=== PATIENT | female | born 1980 | race African-American/Black ===

== ENCOUNTER 2017-07-25 10:48 | Emergency (ER) | payer MEDICAID ==
[~2017-07-25 10:48] MED LIST: ALBU8.5H IH; AMLO-96 PO; AMLO-99 PO; AMOX-559 PO; AZIT-1 PO; BENZ100C4 PO; BUPR-136 PO; CLON-298 PO; DOXY-179 PO; DOXY-181 PO; HYDR-2966 PO; MULT1TAB64 PO; PHEN-460 PO; SERT-181 PO; VENL75CA58 PO
--- NOTE | 2017-07-25 10:56 | ER Report ---
History and Physical Time Seen By MD: 10:55 HPI/ROS CHIEF COMPLAINT: Foot injury HISTORY OF PRESENT ILLNESS: This is a 37-year-old female who presents to the emergency department for left foot and ankle pain. Patient states that July 23 she was getting out of the shower and rolled her foot and ankle medially. Patient states that she has been trying to manage this at home with Tylenol and rest with little success at this point. The patient did decide to come in for further evaluation. Patient states she is walking with a limp, there is swelling to the left ankle and left small toe. Patient has no other complaints no nausea, vomiting, aches, chills. REVIEW OF SYSTEMS: Respiratory: No cough, no dyspnea. Cardiovascular: No chest pain, no palpitations. Gastrointestinal: No vomiting, no abdominal pain. Musculoskeletal: As above. Allergies: Coded Allergies: Penicillins (Verified Allergy, Unknown, 05/02/16) meloxicam (Verified Allergy, Unknown, 07/25/17) Uncoded Allergies: seasonal allergies (Allergy, Unknown, 05/02/16) Home Meds Active Scripts Ibuprofen (IBUPROFEN) 800 Mg Tablet, 1 TAB PO Q8H, #30 TAB Prov:MARITA LIZARRAGA EBD SPECIAL EDUCATION TEACHER-BC 07/25/17 Hydrochlorothiazide (HYDROCHLOROTHIAZIDE) 25 Mg Tablet, 1 TAB PO QDAY, #90 TAB 1 Refill Prov:ALONDRA DOSHI MD 05/27/17 Clonazepam (CLONAZEPAM) 0.5 Mg Tablet, 1 TAB PO DAILY, #1 TAB Prov:ALONDRA DOSHI MD 05/27/17 Reported Medications Amlodipine Besylate (AMLODIPINE BESYLATE) 10 Mg Tablet, 1 TAB PO QDAY, TAB 07/25/17 Clonazepam (CLONAZEPAM) 0.5 Mg Tablet, 0.5 MG PO DAILY, TAB 05/27/17 Venlafaxine Hcl (EFFEXOR XR) 75 Mg Cap.er.24h, 75 MG PO QDAY 05/21/17 Multivitamin (MULTI VITAMIN DAILY) 1 Each Tablet, 1 EACH PO DAILY 05/02/16 Discontinued Scripts Phentermine Hcl (PHENTERMINE HCL) 30 Mg Capsule, 30 MG PO QDAY, #90 CAPSULE 3 Refills Prov:ALONDRA DOSHI MD 05/27/17 Amlodipine Besylate (AMLODIPINE BESYLATE) 5 Mg Tablet, 1 TAB PO QDAY, #90 TAB 1 Refill Prov:ALONDRA DOSHI MD 05/27/17 Doxycycline Hyclate (DOXYCYCLINE HYCLATE) 100 Mg Capsule, 1 CAP PO BID, #20 CAPSULE 0 Refills Prov:HÉCTOR OLIVER APRN EBD SPECIAL EDUCATION TEACHER-C 05/21/17 Past Medical/Surgical History Patient has a past medical and surgical history of asthma, right collarbone fracture, wears glasses, wisdom teeth extraction, cyst removal, carpal tunnel repair. Reviewed Nurses Notes: Yes Smoking Status: Current: Every Day Smoker Constitutional Vital Sign - Last 24 Hours 07/25/17 07/25/17 07/25/17 07/25/17 10:56 10:58 10:58 11:01 Temp 98.7 Pulse 130 130 Resp 20 B/P (MAP) 118/88 (98) 118/88 121/92 (102) Pulse Ox 94 94 O2 Delivery Room Air 07/25/17 07/25/17 07/25/17 07/25/17 11:03 11:08 11:13 11:18 Pulse 119 118 123 125 Pulse Ox 97 96 95 94 07/25/17 07/25/17 07/25/17 07/25/17 11:23 11:28 11:33 11:38 Pulse 121 95 94 92 Pulse Ox 95 96 07/25/17 07/25/17 07/25/17 07/25/17 11:40 11:43 11:48 11:53 Pulse 94 96 93 B/P (MAP) 109/78 (88) Pulse Ox 96 97 96 07/25/17 07/25/17 07/25/17 11:58 12:00 12:03 Pulse 90 91 B/P (MAP) 116/75 (89) Pulse Ox 97 96 Physical Exam General Appearance: The patient is alert, has no immediate need for airway protection and no current signs of toxicity. Eyes: Pupils equal and round no injection. Respiratory: Chest is non tender, lungs are clear to auscultation. Cardiac: regular rate and rhythm, no murmurs, clicks or rubs. Gastrointestinal: Abdomen is soft and non tender, no masses, bowel sounds normal. Musculoskeletal: Neck: Neck is supple and non tender. Extremities left lateral ankle mildly painful with palpation, edema no erythema. No step-offs, crepitus or ecchymosis. Left small toe painful to touch mild edema no obvious deformity. Skin: No rashes or lesions. DIFFERENTIAL DIAGNOSIS: After history and physical exam differential diagnosis was considered for contusion, fracture of left small toe, avulsion fracture. Medical Decision Making EKG/Imaging Imaging FACILITY: [facility] [place] PATIENT NAME: Karolina Faust : 1980 MR: [id number] V: [id number] EXAM DATE: ORDERING PHYSICIAN: MARITA LIZARRAGA TECHNOLOGIST: Location: [facility] Patient: Karolina Faust : 1980 Visit/Account:[id number] Date of Sevice: 07/25/2017 Exam type: ANKLE 3 VIEW MIN LEFT History: pain, injury Comparison: Findings: There is a bony density projecting just distal to the medial malleolus. This could represent accessory ossicle versus an acute fracture. The ankle mortise appears intact. Otherwise no gross evidence of fracture involving the left ankle. IMPRESSION: 1. There is a small bony density projecting just distal to the medial malleolus which could represent an accessory ossicle versus an acute fracture Report Dictated By: April Mae MD at 07/25/2017 11:43 AM Report E-Signed By: April Mae MD at 07/25/2017 11:44 AM WSN:[email or web address] FACILITY: [facility] [place] PATIENT NAME: Karolina Faust : 1980 MR: [id number] V: [id number] EXAM DATE: ORDERING PHYSICIAN: MARITA LIZARRAGA TECHNOLOGIST: Location: [facility] Patient: Karolina Faust : 1980 Visit/Account:[id number] Date of Sevice: 07/25/2017 Exam type: FOOT 3 VIEW LEFT History: Fell, pain lateral aspect left foot and ankle Comparison: None Findings: There is no evidence of acute fracture dislocation involving the left foot . There is a small bony density projecting just distal to the medial malleolus. This could represent an accessory ossicle although an acute fracture not totally excluded.. IMPRESSION: 1. Bony density projects just distal to the medial malleolus which could represent accessory ossicles versus an acute fracture Report Dictated By: April Mae MD at 07/25/2017 11:41 AM Report E-Signed By: April Mae MD at 07/25/2017 11:43 AM CLAUDIAN:ANYI ED Course/Re-evaluation ED Course The patient was admitted to room. A history and physical were obtained. Differential diagnoses were considered. A 3 view foot x-ray was negative for any acute osseous abnormalities. A 3 view ankle showing a possible avulsion fracture of the left lateral malleolus. The results were reviewed with the patient. The patient was placed in an Aircast and a cast shoe. Patient was instructed to follow-up with [facility]. Patient was also given a prescription for ibuprofen. The patient was encouraged to return to the emergency department for worsening symptoms. Patient had no other questions or concerns and was discharged home. Decision to Disposition Date: Jul 25, 2017 Decision to Disposition Time: 12:00 Depart Departure Latest Vital Signs Vital Signs Date Time Temp Pulse Resp B/P (MAP) Pulse Ox O2 Delivery O2 Flow Rate FiO2 07/25/17 12:03 91 96 07/25/17 12:00 116/75 (89) 07/25/17 10:58 98.7 20 Room Air Impression: Primary Impression: Avulsion fracture of left ankle Condition: Improved Disposition: HOME OR SELF-CARE Referrals: ALONDRA DOSHI MD (PCP) New Scripts Ibuprofen (IBUPROFEN) 800 Mg Tablet 1 TAB PO Q8H, #30 TAB Prov: MARITA LIZARRAGA-BETTY 07/25/17 Departure Forms: ER Transition Record, Medications Reconciliation, Patient Portal Information Patient Instructions: Avulsion Fracture, Ankle Additional Instructions: Drink plenty of fluids. Get plenty of rest. Take the Ibuprofen every 8 hours as needed for pain and swelling. Continue current medications. Follow up in 1-2 weeks with [facility] for reevaluation of the ankle. May return to the ED for worsening symptoms. Problem Qualifiers Primary Impression: Avulsion fracture of left ankle Encounter type: initial encounter Fracture type: closed Qualified Codes: S82.892A - Other fracture of left lower leg, initial encounter for closed fracture MARITA LIZARRAGA Jul 25, 2017 10:56
[2017-07-25] MEDS ORDERED: AMLO-99 PO (11:05)
[2017-07-25] MEDS ORDERED: IBUPROFEN 800 MG TAB PO ONE (11:05)
--- NOTE | 2017-07-25 11:48 | RADIOLOGY IMAGING REPORT ---
FACILITY: [facility] PATIENT NAME: Karolina Faust : 1980 MR: [id number] V: [id number] EXAM DATE: ORDERING PHYSICIAN: MARITA LIZARRAGA TECHNOLOGIST: Location: [facility] Patient: Karolina Faust : 1980 Visit/Account:[id number] Date of Sevice: 07/25/2017 Exam type: ANKLE 3 VIEW MIN LEFT History: pain, injury Comparison: Findings: There is a bony density projecting just distal to the medial malleolus. This could represent accesso ry ossicle versus an acute fracture. The ankle mortise appears intact. Otherwise no gross evidence of fracture involving the left ankle. IMPRESSION: 1. There is a small bony density projecting just distal to the medial malleolus which could represen t an accessory ossicle versus an acute fracture Report Dictated By: April Mae MD at 07/25/2017 11:43 AM Report E-Signed By: April Mae MD at 07/25/2017 11:44 AM WSN:ANYI
--- NOTE | 2017-07-25 11:48 | RADIOLOGY IMAGING REPORT ---
[place] [facility] [place]: Karolina Faust : 1980 MR: [id number] V: [id number] EXAM DATE: ORDERING PHYSICIAN: MARITA LIZARRAGA TECHNOLOGIST: Location: [facility] Patient: Karolina Faust : 1980 Visit/Account:[id number] Date of Sevice: 07/25/2017 Exam type: FOOT 3 VIEW LEFT History: Fell, pain lateral aspect left foot and ankle Comparison: None Findings: There is no evidence of acute fracture dislocation involving the left foot . There is a small bony d ensity projecting just distal to the medial malleolus. This could represent an accessory ossicle alt kaitlin an acute fracture not totally excluded.. IMPRESSION: 1. Bony density projects just distal to the medial malleolus which could represent accessory ossicle s versus an acute fracture Report Dictated By: April Mae MD at 07/25/2017 11:41 AM Report E-Signed By: April Mae MD at 07/25/2017 11:43 AM WSN:[email or web address]
[2017-07-25 12:00] VITALS: BP 116/75
[2017-07-25] MEDS ORDERED: IBUP800T37 PO (12:03)
== END 2017-07-25 12:22 | disposition home or self-care (01) ==
LOC: ER 10:48
DX: S82.892A Other fracture of left lower leg, initial encounter for closed fracture (principal)
CPT/HCPCS: 73610; 73630; 99283; L1930

== ENCOUNTER 2017-09-21 12:51 | Emergency (ER) | payer MEDICAID ==
[~2017-09-21 12:51] MED LIST changes: +IBUP800T37 PO
--- NOTE | 2017-09-21 12:53 | ER Report ---
History and Physical Time Seen By MD: 12:52 HPI/ROS CHIEF COMPLAINT: Sinus pressure HISTORY OF PRESENT ILLNESS: Patient is a 37-year-old female who said 2-3 days worth of sinus pressure itching to both ears nasal congestion and postnasal drip. She denies cough or chest pain she denies abdominal pain nausea vomiting or diarrhea. Patient has no known ill contacts. And no contributory past medical history REVIEW OF SYSTEMS: Respiratory: No cough, no dyspnea. Cardiovascular: No chest pain, no palpitations. Gastrointestinal: No vomiting, no abdominal pain. Musculoskeletal: No back pain. Allergies: Coded Allergies: Penicillins (Verified Allergy, Unknown, 05/02/16) meloxicam (Verified Allergy, Unknown, 07/25/17) Uncoded Allergies: seasonal allergies (Allergy, Unknown, 05/02/16) Home Meds Active Scripts Hydrochlorothiazide (HYDROCHLOROTHIAZIDE) 25 Mg Tablet, 1 TAB PO QDAY, #90 TAB 1 Refill Prov:ALONDRA DOSHI MD 05/27/17 Reported Medications Amlodipine Besylate (AMLODIPINE BESYLATE) 10 Mg Tablet, 1 TAB PO QDAY, TAB 07/25/17 Clonazepam (CLONAZEPAM) 0.5 Mg Tablet, 0.5 MG PO BID, TAB 05/27/17 Venlafaxine Hcl (EFFEXOR XR) 75 Mg Cap.er.24h, 75 MG PO QDAY 05/21/17 Multivitamin (MULTI VITAMIN DAILY) 1 Each Tablet, 1 EACH PO DAILY 05/02/16 Discontinued Scripts Ibuprofen (IBUPROFEN) 800 Mg Tablet, 1 TAB PO Q8H, #30 TAB Prov:MARITA LIZARRAGA MOBILE SALES CONSULTANT-BC 07/25/17 Clonazepam (CLONAZEPAM) 0.5 Mg Tablet, 1 TAB PO DAILY, #1 TAB Prov:ALONDRA DOSHI MD 05/27/17 Past Medical/Surgical History Hypertension Smoking Status: Current: Every Day Smoker Constitutional Vital Sign - Last 24 Hours 09/21/17 12:54 Temp 97.7 Pulse 99 Resp 16 B/P (MAP) 112/66 Pulse Ox 94 O2 Delivery Room Air Physical Exam General Appearance: The patient is alert, has no immediate need for airway protection and no current signs of toxicity. [ ] Eyes: Pupils equal and round no injection. ENT: TMs are clear bilaterally however there is injection and hyperemia to both canals. Patient does have diffuse tenderness to the maxillary and frontal sinuses. Nasal turbinates are erythematous and boggy with purulent nasal discharge. Oropharynx reveals cobblestoning to the posterior wall. Respiratory: Chest is non tender, lungs are clear to auscultation. Cardiac: regular rate and rhythm Gastrointestinal: Abdomen is soft and non tender, no masses, bowel sounds normal. Musculoskeletal: Neck: Neck is supple and non tender. Extremities have full range of motion and are non tender. Skin: No rashes or lesions. Medical Decision Making Data Points Laboratory Chemistry Test 09/21/17 12:55 ED Course/Re-evaluation ED Course 09/21/2017 1:20:57 pm at this time will be to discharge the patient for treatment for acute sinusitis. Decision to Disposition Date: Sep 21, 2017 Decision to Disposition Time: 13:21 Depart Departure Latest Vital Signs Vital Signs Date Time Temp Pulse Resp B/P (MAP) Pulse Ox O2 Delivery O2 Flow Rate FiO2 09/21/17 12:54 97.7 99 16 112/66 94 Room Air Impression: Primary Impression: Sinusitis Condition: Improved Disposition: HOME OR SELF-CARE Referrals: ALONDRA DOSHI MD (PCP) 2 Days New Scripts Neomycin/Polymyxin B Sulf/Hc (Cortisporin [DSC] EAR SOLN) 10 Ml Solution 10 ML OT Q6H for 5 Days, #1 BOT 0 Refills Prov: KEATON ANTONY MD 09/21/17 Oxymetazoline Hcl (AFRIN) 15 Ml Mist 2 SPRAYS SEGUNDO BID for 3 Days, #1 BOTTLE 0 Refills Prov: KEATON ANTONY MD 09/21/17 Pseudoephedrine Hcl (SUDAFED 12 HOUR) 120 Mg Tablet.er 120 MG PO Q12H for congestion, #30 TAB 0 Refills Prov: KEATON ANTONY MD 09/21/17 Azithromycin (ZITHROMAX) 250 Mg Tablet 0 PO QDAY, #6 TAB 0 Refills 2 tabs on day 1; then 1 tab daily for four days Prov: KEATON ANTONY MD 09/21/17 Patient Instructions: Sinusitis (ED) Problem Qualifiers Primary Impression: Sinusitis Sinusitis location: unspecified location Chronicity: acute Recurrence: non -recurrent Qualified Codes: J01.90 - Acute sinusitis, unspecified KEATON ANTONY MD Sep 21, 2017 12:53
[2017-09-21] MEDS ORDERED: AZIT-1 PO (13:25)
[2017-09-21] MEDS ORDERED: CORED OT (13:25)
[2017-09-21] MEDS ORDERED: PSEU-287 PO (13:25)
[2017-09-21] MEDS ORDERED: OXYM15MI14 ENA (13:25)
[2017-09-21 13:30] VITALS: BP 99/46
== END 2017-09-21 13:31 | disposition home or self-care (01) ==
LOC: ER 12:54
DX: J01.90 Acute sinusitis, unspecified (principal)
CPT/HCPCS: 87502; 99282